=== PATIENT | male | born 1950 | race Caucasian/White ===

== ENCOUNTER → 2017-01-27 | Outpatient (CLI) | payer OTHER ==
[~2017-01-27] MED LIST: AMLODIPINE BESY10 MG PO; ASPIRIN EC81 M1 PO; ASPIRINEC PO; ATENOLOL PO; BAYER ASPIRIN325 M1; EFFIENT10 MG PO; GLYNASE PO; LIPITOR20 MG PO; LISINOPRIL PO; NITROGLYGERIN0.4 MG SL; NITROGYLCERIN SUBLINGUAL; ZESTRIL40 MG PO
[2017-01-27 10:58] LABS: BUN/CREATININE RATIO 12.22; CALCIUM SERUM 9.9 mg/dL (8.4-10.2); CREATININE SERUM 0.9 mg/dL (0.6-1.4); GLOM FILT RATE Estimated 88.1 mL/min (>60); POTASSIUM 4.8 mmol/L (3.5-5.1)
== END | disposition home or self-care (01) ==
LOC: SLAB 10:21
DX: I10 Essential (primary) hypertension (principal)
CPT/HCPCS: 36415; 80048